=== PATIENT | male | born 1980 | race Two or more races ===

== ENCOUNTER → 2016-09-05 | Outpatient (CLI) | payer MEDICAID ==
[~2016-09-05] MED LIST: IOHEXOL-300 100 ML BOTTLE ONE; SODIUM CHLORIDE 0.9% 10ML VIAL ONE
== END | disposition home or self-care (01) ==
LOC: CT 10:10
DX: S00.05XA Superficial foreign body of scalp, initial encounter (principal); W34.00XA Accidental discharge from unspecified firearms or gun, initial encounter; Y93.89 Activity, other specified; Y92.89 Other specified places as the place of occurrence of the external cause; Y99.8 Other external cause status
CPT/HCPCS: 70470; A4216; Q9967

== ENCOUNTER 2016-09-16 10:31 | Emergency (ER) | payer MEDICAID ==
[~2016-09-16] VITALS: Ht 167.6 cm; Wt 90.0 kg
[2016-09-16] MEDS ORDERED: IBUPROFEN 600MG TABLET PO ONE (12:30)
[2016-09-16 12:43] VITALS: BP 144/92
== END 2016-09-16 13:00 | disposition home or self-care (01) ==
LOC: ER 10:56
DX: J32.9 Chronic sinusitis, unspecified (principal); H66.91 Otitis media, unspecified, right ear
CPT/HCPCS: 99283